=== PATIENT | female | born 1955 | race Caucasian/White ===

== ENCOUNTER → 2016-05-23 | Outpatient (CLI) | payer OTHER ==
[~2016-05-23] MED LIST: ACLI1AER3 INH; ADVIN50050 INH; ALBUAER19 INH; ASPEC325 PO; BNC/4025 PO; BUPR150T7 PO; CLB200 PO; HYDR-5688 PO; PANT40TA PO; SNK PO; cipro PO
[2016-05-23 13:16] LABS: MEAN CORPUSCULAR HGB CONC 33.6 g/dl (32-36); MEAN PLATELET VOLUME 10.4 fL (7.4-10.4); PLATELET COUNT 274 K/uL (130-400)
[2016-05-23 13:22] LABS: ALT/SGPT 23 U/L (12-78); AST/SGOT 12 U/L (15-37); BLOOD UREA NITROGEN 12 mg/dl (7-18); BUN/CREATININE RATIO 16.3 (10-20); CALCIUM 9.1 mg/dl (8.5-10.1); CARBON DIOXIDE 29 mmol/L (21-32); CHLORIDE 104 mmol/L (98-107); CREATININE 0.72 mg/dl (0.60-1.20); GLUCOSE 143 mg/dl (70-99); POTASSIUM 4.1 mmol/L (3.5-5.1); SODIUM 140 mmol/L (136-145)
[2016-05-23 13:25] LABS: ALKALINE PHOSPHATASE 90 U/L (45-117); CHOLESTEROL 141 mg/dl (0-200); CHOLESTEROL/HDL RATIO 3.5; ESTIMATED AVERAGE GLUCOSE 154 mg/dl; HA1C FLAG Normal (Normal); HDL CHOLESTEROL 40 mg/dl; LDL CHOLESTEROL CALCULATED 75 mg/dl; TRIGLYCERIDES 129 mg/dl (0-150); VERY LOW DENSITY LIPOPROT CALC 26 mg/dl
[2016-05-23 13:41] LABS: COMPLETE YES; EOSINOPHIL % 1.8 %; HEMATOCRIT 44.1 % (37-47); LYMPH ABS # 1.53 K/uL (1.2-3.4); LYMPHOCYTE % 17.5 %; MEAN CELL VOLUME 93.4 fL (80-100); MEAN CORPUSCULAR HEMOGLOBIN 31.4 pg (25-34); NEUTROPHILS % 76.3 %; RED BLOOD COUNT 4.72 M/uL (4.2-5.4); WHITE BLOOD COUNT 8.76 K/uL (4.8-10.8)
== END | disposition home or self-care (01) ==
LOC: C.LABSPEC 12:56
PROVIDERS: ATTEND Family Medicine
DX: E11.9 Type 2 diabetes mellitus without complications (principal)

== ENCOUNTER → 2016-09-01 | Outpatient (CLI) | payer OTHER ==
[2016-09-01 13:52] LABS: BASO % 0.6 %; BASO ABS # 0.04 K/uL (0-0.2); COMPLETE YES; EOS % 1.8 %; HEMATOCRIT 44.5 % (37-47); IG% 0.1 %; LYMPH % 27.7 %; LYMPH ABS # 1.88 K/uL (1.2-3.4); MEAN CELL VOLUME 94.1 fL (80-100); MEAN CORPUSCULAR HEMOGLOBIN 31.3 pg (25-34); MEAN CORPUSCULAR HGB CONC 33.3 g/dl (32-36); MEAN PLATELET VOLUME 10.6 fL (7.4-10.4); MONO % 6.8 %; PLATELET COUNT 229 K/uL (130-400); RED BLOOD COUNT 4.73 M/uL (4.2-5.4); WHITE BLOOD COUNT 6.78 K/uL (4.8-10.8)
[2016-09-01 14:46] LABS: ESTIMATED AVERAGE GLUCOSE 166 mg/dl; HA1C FLAG Normal (Normal)
[2016-09-01 14:48] LABS: ALT/SGPT 23 U/L (12-78); BLOOD UREA NITROGEN 11 mg/dl (7-18); BUN/CREATININE RATIO 12.4 (10-20); CARBON DIOXIDE 27 mmol/L (21-32); CHLORIDE 106 mmol/L (98-107); CHOLESTEROL 162 mg/dl (0-200); CREATININE 0.89 mg/dl (0.60-1.20); GLUCOSE 145 mg/dl (70-99); POTASSIUM 4.1 mmol/L (3.5-5.1); SODIUM 142 mmol/L (136-145); TRIGLYCERIDES 130 mg/dl (0-150); VERY LOW DENSITY LIPOPROT CALC 26 mg/dl
[2016-09-01 14:51] LABS: ALB/GLOB RATIO 1.1 (0.9-2); ALKALINE PHOSPHATASE 76 U/L (45-117); AST/SGOT 12 U/L (15-37); HDL CHOLESTEROL 41 mg/dl; LDL CHOLESTEROL CALCULATED 95 mg/dl
[2016-09-01 14:56] LABS: CALCIUM 9.4 mg/dl (8.5-10.1)
== END | disposition home or self-care (01) ==
LOC: C.LABSPEC 13:12
PROVIDERS: ATTEND Family Medicine
DX: E11.9 Type 2 diabetes mellitus without complications (principal); J44.9 Chronic obstructive pulmonary disease, unspecified; I10 Essential (primary) hypertension

== ENCOUNTER → 2016-10-18 | Outpatient (CLI) | payer OTHER ==
[2016-10-18 13:38] LABS: BASO % 0.2 %; BASO ABS # 0.03 K/uL (0-0.2); COMPLETE YES; EOS % 0.1 %; HEMATOCRIT 41.9 % (37-47); IG% 0.2 %; LYMPH % 13.4 %; LYMPH ABS # 1.67 K/uL (1.2-3.4); MEAN CELL VOLUME 91.7 fL (80-100); MEAN CORPUSCULAR HEMOGLOBIN 32.4 pg (25-34); MEAN CORPUSCULAR HGB CONC 35.3 g/dl (32-36); MEAN PLATELET VOLUME 10.5 fL (7.4-10.4); MONO % 7.7 %; NEUT % 78.4 %; PLATELET COUNT 227 K/uL (130-400); RED BLOOD COUNT 4.57 M/uL (4.2-5.4); WHITE BLOOD COUNT 12.48 K/uL (4.8-10.8)
[2016-10-18 14:00] LABS: AMYLASE 21 U/L (25-115); BLOOD UREA NITROGEN 11 mg/dl (7-18); BUN/CREATININE RATIO 10.6 (10-20); CALCIUM 9.3 mg/dl (8.5-10.1); CARBON DIOXIDE 24 mmol/L (21-32); CHLORIDE 97 mmol/L (98-107); GLUCOSE 155 mg/dl (70-99); POTASSIUM 3.5 mmol/L (3.5-5.1); SODIUM 130 mmol/L (136-145)
[2016-10-18 14:05] LABS: ALB/GLOB RATIO 0.9 (0.9-2); ALKALINE PHOSPHATASE 70 U/L (45-117); ALT/SGPT 23 U/L (12-78); AST/SGOT 14 U/L (15-37)
== END | disposition home or self-care (01) ==
LOC: C.LABSPEC 13:05
PROVIDERS: ATTEND Family Medicine
DX: R11.0 Nausea (principal); R06.02 Shortness of breath

== ENCOUNTER → 2017-03-05 | Outpatient (CLI) | payer OTHER ==
[2017-03-05 13:16] LABS: BASO % 0.3 %; BASO ABS # 0.03 K/uL (0-0.2); COMPLETE YES; EOS % 1.4 %; HEMATOCRIT 46.6 % (37-47); IG% 0.2 %; LYMPH % 24.3 %; LYMPH ABS # 2.36 K/uL (1.2-3.4); MEAN CELL VOLUME 92.6 fL (80-100); MEAN CORPUSCULAR HEMOGLOBIN 31.6 pg (25-34); MEAN CORPUSCULAR HGB CONC 34.1 g/dl (32-36); MEAN PLATELET VOLUME 9.6 fL (7.4-10.4); MONO % 5.5 %; NEUT % 68.3 %; PLATELET COUNT 273 K/uL (130-400); RED BLOOD COUNT 5.03 M/uL (4.2-5.4); WHITE BLOOD COUNT 9.72 K/uL (4.8-10.8)
[2017-03-05 14:33] LABS: ALT/SGPT 21 U/L (12-78); BLOOD UREA NITROGEN 11 mg/dl (7-18); BUN/CREATININE RATIO 15.1 (10-20); CARBON DIOXIDE 29 mmol/L (21-32); CHLORIDE 97 mmol/L (98-107); CHOLESTEROL 151 mg/dl (0-200); CREATININE 0.73 mg/dl (0.60-1.20); GLUCOSE 131 mg/dl (70-99); POTASSIUM 4.3 mmol/L (3.5-5.1); SODIUM 132 mmol/L (136-145)
[2017-03-05 14:36] LABS: ALB/GLOB RATIO 1.2 (0.9-2); ALKALINE PHOSPHATASE 81 U/L (45-117); AST/SGOT 9 U/L (15-37); CHOLESTEROL/HDL RATIO 3.3; HDL CHOLESTEROL 46 mg/dl; LDL CHOLESTEROL CALCULATED 71 mg/dl; TRIGLYCERIDES 168 mg/dl (0-150); VERY LOW DENSITY LIPOPROT CALC 34 mg/dl
[2017-03-05 14:37] LABS: ESTIMATED AVERAGE GLUCOSE 163 mg/dl; HA1C FLAG Normal (Normal)
== END | disposition home or self-care (01) ==
LOC: C.LABSPEC 12:36
PROVIDERS: ATTEND Family Medicine
DX: Z00.00 Encounter for general adult medical examination without abnormal findings (principal); E11.9 Type 2 diabetes mellitus without complications; I10 Essential (primary) hypertension